=== PATIENT | female | born 1935 | race Caucasian/White ===

== ENCOUNTER 2020-09-05 11:19 | Inpatient (IN) | payer OTHER ==
[2020-09-05] MEDS ORDERED: MORPHINE SULFATE 2 MG/ML VIAL ONE ×2 (12:33→16:57)
[2020-09-05] MEDS ORDERED: ACETAMINOPHEN INJECTION 100 ML IVPB ONE (12:33)
[2020-09-05] MEDS ORDERED: ACETAMINOPHEN 1000 MG/100 ML VIAL (NON FORMULARY) IVPB ONE (12:36)
[2020-09-05] MEDS ORDERED: morphine CARPU-JECT 2 MG/1 ML DISP.SYRIN IVPUSH ONE (12:36)
[2020-09-05 13:45] LABS: BASO % 0.5 % (0-2.0); EOS % 2.6 % (0-4.5); HEMATOCRIT 32.7 % (32.4-45.2); LYMPH % 15.5 % (8-40); MCH 30.6 pg (25.7-33.7); MCHC 33.8 g/dl (32.0-36.0); MEAN CELL VOLUME 90.5 fl (80-96); MEAN PLT VOLUME 7.4 fl (7.5-11.1); MONO % 7.4 % (3.8-10.2); PLATELET COUNT 218 K/MM3 (134-434); RBC 3.61 M/mm3 (3.60-5.2); RDW 14.1 % (11.6-15.6); WHITE BLOOD COUNT 9.2 K/mm3 (4.0-10.0)
[2020-09-05 13:49] LABS: INR 1.03 (0.83-1.09); PROTHROMBIN TIME (PATIENT) 12.4 SEC (9.7-13.0)
[2020-09-05 13:54] LABS: CHLORIDE 104 mmol/L (98-107); POTASSIUM 4.7 mmol/L (3.5-5.1); SODIUM 136 mmol/L (136-145)
[2020-09-05 13:56] LABS: ALBUMIN 3.4 g/dl (3.4-5.0); ANION GAP 6 MMOL/L (8-16); BLOOD UREA NITROGEN 13.9 mg/dL (7-18); CALCIUM 9.3 mg/dL (8.5-10.1); CO2 26 mmol/L (21-32)
[2020-09-05 13:57] LABS: GLUCOSE,RANDOM 128 mg/dL (74-106)
[2020-09-05 13:59] LABS: CREATININE 1.2 mg/dL (0.55-1.3); SGOT/AST 19 U/L (15-37); SGPT/ALT 17 U/L (13-61)
[2020-09-05 14:01] LABS: BILIRUBIN,TOTAL 0.3 mg/dL (0.2-1); TOT PROT 6.8 g/dl (6.4-8.2)
[2020-09-05 14:02] LABS: ALK PHOS 84 U/L (45-117)
[2020-09-05] MEDS: MORPHINE SULFATE 2 MG/ML VIAL IVPUSH PRN ×2 (17:08→23:51)
[2020-09-05] MEDS ORDERED: ATENOLOL 25 MG TABLET (FP) PO SCH (22:00)
[2020-09-05] MEDS: HEPARIN NA (PORCINE) 5,000 UNITS/ML 1ML VIAL SQ SCH (23:47)
[2020-09-05] MEDS: ATENOLOL 25 MG TABLET (FP) PO SCH (23:47)
[2020-09-05] MEDS: ENALAPRIL MALEATE 10 MG TABLET PO SCH (23:47)
[2020-09-06 02:47] VITALS: BMI 23.2
[2020-09-06] MEDS: MORPHINE SULFATE 2 MG/ML VIAL IVPUSH PRN (05:50)
[2020-09-06] MEDS ORDERED: D5-1/2NS+20 MEQ KCL - 20 MEQ/1,000 ML INFUS.BAG IV SCH (08:15)
[2020-09-06] MEDS: ENALAPRIL MALEATE 10 MG TABLET PO SCH ×2 (09:24→21:24)
[2020-09-06] MEDS: ATENOLOL 25 MG TABLET (FP) PO SCH (09:24)
[2020-09-06] MEDS ORDERED: FLU VACCINE (FLULAVAL) PF 60 MCG/0.5 ML SYRINGE 2020-2021 IM ONE (09:30)
[2020-09-06] MEDS: HEPARIN NA (PORCINE) 5,000 UNITS/ML 1ML VIAL SQ SCH (09:31)
[2020-09-06 09:33] LABS: BASO % 0.3 % (0-2.0); EOS % 0.1 % (0-4.5); HEMATOCRIT 28.1 % (32.4-45.2); HEMOGLOBIN 9.7 GM/dL (10.7-15.3); LYMPH % 11.3 % (8-40); MCH 30.7 pg (25.7-33.7); MCHC 34.4 g/dl (32.0-36.0); MEAN CELL VOLUME 89.2 fl (80-96); MEAN PLT VOLUME 7.3 fl (7.5-11.1); NEUT % 78.3 % (42.8-82.8); PLATELET COUNT 171 K/MM3 (134-434); RBC 3.16 M/mm3 (3.60-5.2); WHITE BLOOD COUNT 10.4 K/mm3 (4.0-10.0)
[2020-09-06 09:50] LABS: POTASSIUM 4.5 mmol/L (3.5-5.1)
[2020-09-06] MEDS ORDERED: PANTOPRAZOLE 40 MG TABLET PO SCH (10:00)
[2020-09-06 10:34] LABS: ALBUMIN 3.1 g/dl (3.4-5.0); CALCIUM 8.6 mg/dL (8.5-10.1)
[2020-09-06 10:35] LABS: BLOOD UREA NITROGEN 18.4 mg/dL (7-18)
[2020-09-06 10:39] LABS: TOT PROT 6.1 g/dl (6.4-8.2)
[2020-09-06 10:44] LABS: BILIRUBIN,TOTAL 0.4 mg/dL (0.2-1)
[2020-09-06] MEDS ORDERED: INSULIN SLIDING SCALE (NOVOLOG) 1 VIAL SQ SCH (11:00)
[2020-09-06] MEDS ORDERED: oxyCODONE HCL 5 MG TABLET PO PRN (11:07)
[2020-09-06] MEDS ORDERED: ONDANSETRON 4 MG/2 ML VIAL IVPUSH PRN ×2 (11:07→12:55)
[2020-09-06] MEDS ORDERED: LACTATED RINGERS SOLUTION 1,000 ML IV SCH (11:15)
[2020-09-06] MEDS ORDERED: PROPOFOL 20 ML ONE (11:34)
[2020-09-06] MEDS ORDERED: ceFAZolin 2 GRAM PREMIX BAG IVPB ONE (11:45)
[2020-09-06] MEDS ORDERED: EPHEDRINE SULFATE/0.9% NACL/PF 50 MG/10 ML SYRINGE NR ONE (11:59)
[2020-09-06] MEDS ORDERED: PHENYLEPHRINE HCL 10 MG/1 ML SINGLE DOSE VIAL ONE (12:10)
[2020-09-06] MEDS ORDERED: NEOSTIGMINE METHYLSULFATE 0.5 MG/ML - 10 ML MDV ONE (12:11)
[2020-09-06] MEDS ORDERED: MORPHINE SULFATE 2 MG/ML VIAL IVPUSH PRN (12:55)
[2020-09-06] MEDS: D5-1/2NS+20 MEQ KCL - 20 MEQ/1,000 ML INFUS.BAG IV SCH (15:16)
[2020-09-06] MEDS: oxyCODONE HCL 5 MG TABLET PO PRN ×2 (16:28→21:26)
[2020-09-06] MEDS: INSULIN SLIDING SCALE (NOVOLOG) 1 VIAL SQ SCH ×2 (16:37→21:24)
[2020-09-06] MEDS ORDERED: ceFAZolin SODIUM 1 GM VIAL ONE (19:59)
[2020-09-06] MEDS ORDERED: CEFAZOLIN 1 GM/D5W 1 GM/50 ML BAG IVPB SCH (20:00)
[2020-09-06] MEDS ORDERED: DEXTROSE 5%-WATER - 50 ML IVPB ONE (20:00)
[2020-09-06] MEDS: CEFAZOLIN 1 GM in DEXTROSE 5%-WATER - 50 ML IVPB SCH (20:13)
[2020-09-06] MEDS: ATENOLOL 50 MG TABLET (FP) PO SCH (21:24)
[2020-09-07] MEDS ORDERED: ceFAZolin SODIUM 1 GM VIAL ONE (03:10)
[2020-09-07] MEDS ORDERED: DEXTROSE 5%-WATER - 50 ML IVPB ONE (03:11)
[2020-09-07] MEDS: CEFAZOLIN 1 GM in DEXTROSE 5%-WATER - 50 ML IVPB SCH (03:13)
[2020-09-07] MEDS: oxyCODONE HCL 5 MG TABLET PO PRN ×3 (03:14→21:53)
[2020-09-07] MEDS: INSULIN SLIDING SCALE (NOVOLOG) 1 VIAL SQ SCH ×4 (06:49→21:52)
[2020-09-07 08:38] LABS: BASO % 0.3 % (0-2.0); EOS % 0.1 % (0-4.5); HEMATOCRIT 25.2 % (32.4-45.2); HEMOGLOBIN 8.7 GM/dL (10.7-15.3); LYMPH % 7.5 % (8-40); MCH 30.7 pg (25.7-33.7); MCHC 34.7 g/dl (32.0-36.0); MEAN CELL VOLUME 88.7 fl (80-96); MEAN PLT VOLUME 7.3 fl (7.5-11.1); NEUT % 81.1 % (42.8-82.8); PLATELET COUNT 163 K/MM3 (134-434); RBC 2.84 M/mm3 (3.60-5.2); RDW 13.8 % (11.6-15.6); WHITE BLOOD COUNT 9.9 K/mm3 (4.0-10.0)
[2020-09-07 09:01] LABS: POTASSIUM 3.9 mmol/L (3.5-5.1)
[2020-09-07 09:11] LABS: ALBUMIN 2.7 g/dl (3.4-5.0)
[2020-09-07 09:12] LABS: BLOOD UREA NITROGEN 12.9 mg/dL (7-18)
[2020-09-07] MEDS: ATENOLOL 50 MG TABLET (FP) PO SCH ×2 (09:12→21:54)
[2020-09-07] MEDS: PANTOPRAZOLE 40 MG TABLET PO SCH (09:12)
[2020-09-07] MEDS: ENALAPRIL MALEATE 10 MG TABLET PO SCH ×2 (09:12→21:53)
[2020-09-07] MEDS: ENOXAPARIN NA (PORCINE) 40 MG/0.4 ML DISP.SYRIN SQ SCH (09:12)
[2020-09-07 09:16] LABS: BILIRUBIN,TOTAL 0.4 mg/dL (0.2-1)
[2020-09-07 09:21] LABS: CREATININE 1.1 mg/dL (0.55-1.3); TOT PROT 5.7 g/dl (6.4-8.2)
[2020-09-07] MEDS ORDERED: ENOXAPARIN NA (PORCINE) 40 MG/0.4 ML DISP.SYRIN SQ SCH (10:00)
[2020-09-07] MEDS: D5-1/2NS+20 MEQ KCL - 20 MEQ/1,000 ML INFUS.BAG IV SCH ×3 (17:12→21:56)
[2020-09-07] MEDS ORDERED: INSULIN (NOVOLOG) ASPART 100 UNITS/ML 10ML VIAL ONE (21:10)
[2020-09-08] MEDS: INSULIN SLIDING SCALE (NOVOLOG) 1 VIAL SQ SCH ×4 (06:25→22:09)
[2020-09-08 08:25] LABS: HEMATOCRIT 22.8 % (32.4-45.2); HEMOGLOBIN 7.9 GM/dL (10.7-15.3); MCH 30.7 pg (25.7-33.7); MCHC 34.6 g/dl (32.0-36.0); MEAN CELL VOLUME 88.8 fl (80-96); MEAN PLT VOLUME 7.2 fl (7.5-11.1); PLATELET COUNT 140 K/MM3 (134-434); RBC 2.57 M/mm3 (3.60-5.2); RDW 13.9 % (11.6-15.6); WHITE BLOOD COUNT 7.2 K/mm3 (4.0-10.0)
[2020-09-08] MEDS: ATENOLOL 50 MG TABLET (FP) PO SCH ×2 (09:41→22:09)
[2020-09-08] MEDS: oxyCODONE HCL 5 MG TABLET PO PRN ×2 (09:41→22:09)
[2020-09-08] MEDS: PANTOPRAZOLE 40 MG TABLET PO SCH (09:43)
[2020-09-08] MEDS: ENOXAPARIN NA (PORCINE) 40 MG/0.4 ML DISP.SYRIN SQ SCH (09:43)
[2020-09-08] MEDS: ENALAPRIL MALEATE 10 MG TABLET PO SCH ×2 (09:43→22:09)
[2020-09-08] MEDS: D5-1/2NS+20 MEQ KCL - 20 MEQ/1,000 ML INFUS.BAG IV SCH (12:09)
[2020-09-09] MEDS: INSULIN SLIDING SCALE (NOVOLOG) 1 VIAL SQ SCH ×4 (06:16→22:48)
[2020-09-09] MEDS: oxyCODONE HCL 5 MG TABLET PO PRN ×2 (09:37→13:43)
[2020-09-09] MEDS: ENOXAPARIN NA (PORCINE) 40 MG/0.4 ML DISP.SYRIN SQ SCH (09:37)
[2020-09-09] MEDS: ATENOLOL 50 MG TABLET (FP) PO SCH ×2 (09:37→22:48)
[2020-09-09] MEDS: ENALAPRIL MALEATE 10 MG TABLET PO SCH ×2 (09:38→22:48)
[2020-09-09] MEDS: PANTOPRAZOLE 40 MG TABLET PO SCH (09:38)
[2020-09-09] MEDS: DOCUSATE SODIUM 100 MG CAPSULE (FP) PO PRN (09:38)
[2020-09-09] MEDS ORDERED: IRON SUCROSE INJECTION 300 MG in SODIUM CHLORIDE 235 ML IVPB ONE (10:00)
[2020-09-09 12:04] LABS: HEMATOCRIT 29.5 % (32.4-45.2); MCH 30.1 pg (25.7-33.7); MEAN CELL VOLUME 88.4 fl (80-96); MEAN PLT VOLUME 7.5 fl (7.5-11.1); PLATELET COUNT 155 K/MM3 (134-434); RBC 3.34 M/mm3 (3.60-5.2); RDW 14.5 % (11.6-15.6); WHITE BLOOD COUNT 8.4 K/mm3 (4.0-10.0)
[2020-09-09 12:20] LABS: POTASSIUM 4.3 mmol/L (3.5-5.1)
[2020-09-09 12:21] LABS: CALCIUM 7.9 mg/dL (8.5-10.1)
[2020-09-09 12:22] LABS: BLOOD UREA NITROGEN 14.6 mg/dL (7-18)
[2020-09-09 12:26] LABS: IRON SERUM 62 ug/dL (50-175); TOTAL IRON BINDING CAPACITY 143 ug/dL (250-450)
[2020-09-10] MEDS: oxyCODONE HCL 5 MG TABLET PO PRN ×3 (01:44→21:48)
[2020-09-10] MEDS: INSULIN SLIDING SCALE (NOVOLOG) 1 VIAL SQ SCH ×4 (06:47→21:49)
[2020-09-10] MEDS: ATENOLOL 50 MG TABLET (FP) PO SCH ×2 (09:34→21:48)
[2020-09-10] MEDS: DOCUSATE SODIUM 100 MG CAPSULE (FP) PO PRN (09:35)
[2020-09-10] MEDS: PANTOPRAZOLE 40 MG TABLET PO SCH (09:35)
[2020-09-10] MEDS: ENALAPRIL MALEATE 10 MG TABLET PO SCH ×2 (09:35→21:48)
[2020-09-10] MEDS: ENOXAPARIN NA (PORCINE) 40 MG/0.4 ML DISP.SYRIN SQ SCH (09:36)
[2020-09-10] MEDS ORDERED: INSULIN (NOVOLOG) ASPART 100 UNITS/ML 10ML VIAL ONE (10:48)
[2020-09-11] MEDS: INSULIN SLIDING SCALE (NOVOLOG) 1 VIAL SQ SCH ×3 (06:08→17:50)
[2020-09-11 09:04] LABS: HEMATOCRIT 28.1 % (32.4-45.2); HEMOGLOBIN 9.8 GM/dL (10.7-15.3); MCH 30.4 pg (25.7-33.7); MCHC 34.7 g/dl (32.0-36.0); MEAN CELL VOLUME 87.5 fl (80-96); PLATELET COUNT 220 K/MM3 (134-434); RBC 3.21 M/mm3 (3.60-5.2); RDW 15.2 % (11.6-15.6); WHITE BLOOD COUNT 10.9 K/mm3 (4.0-10.0)
[2020-09-11] MEDS: ENOXAPARIN NA (PORCINE) 40 MG/0.4 ML DISP.SYRIN SQ SCH (09:19)
[2020-09-11 09:20] LABS: POTASSIUM 4.2 mmol/L (3.5-5.1)
[2020-09-11] MEDS: PANTOPRAZOLE 40 MG TABLET PO SCH (09:20)
[2020-09-11] MEDS: ATENOLOL 50 MG TABLET (FP) PO SCH (09:20)
[2020-09-11] MEDS: oxyCODONE HCL 5 MG TABLET PO PRN ×2 (09:20→19:13)
[2020-09-11 09:37] LABS: BLOOD UREA NITROGEN 16.6 mg/dL (7-18); CALCIUM 8.1 mg/dL (8.5-10.1)
[2020-09-11 09:40] LABS: CREATININE 0.9 mg/dL (0.55-1.3)
[2020-09-11] MEDS ORDERED: ENALAPRIL MALEATE 10 MG TABLET PO SCH (12:00)
[2020-09-11 14:17] VITALS: BP 127/64; PULSE 90; TEMP 98.5
[2020-09-11] MEDS: ENALAPRIL MALEATE 10 MG TABLET PO SCH (17:52)
== END 2020-09-11 20:48 | DRG 481 ==
LOC: JER 11:19 → JERBED 14:36 → J6S 22:22
PROVIDERS: ADMIT Family Medicine; ATTEND Family Medicine
PROC: 0QS704Z Reposition Left Upper Femur with Internal Fixation Device, Open Approach (ICD-10-PCS; principal; 2020-09-06 11:45)
PROC: 30233N1 Transfusion of Nonautologous Red Blood Cells into Peripheral Vein, Percutaneous Approach (ICD-10-PCS; 2020-09-09)
DX: S72.145A Nondisplaced intertrochanteric fracture of left femur, initial encounter for closed fracture (principal); J98.11 Atelectasis; D62 Acute posthemorrhagic anemia; E11.9 Type 2 diabetes mellitus without complications; E78.5 Hyperlipidemia, unspecified; E53.8 Deficiency of other specified B group vitamins; I10 Essential (primary) hypertension; K29.70 Gastritis, unspecified, without bleeding; W00.0XXA Fall on same level due to ice and snow, initial encounter; Y92.89 Other specified places as the place of occurrence of the external cause
CPT/HCPCS: 36415; 36430; 36511; 71045-TC-FY; 73523-TC-FY; 73562-TC-LT-FY; 76000-TC-FY; 80048; 80053; 82550; 82962; 83540; 83550; 84484; 85025; 85027; 85610; 86850; 86900; 86901; 86922; 93005; 93010; 94010; 94760; 97116-GP; 97162-GP; 99285-25; C9803; G0008; J0131; J1644; J1756; P9038; P9058; Q2036; U0003

== ENCOUNTER 2021-06-06 22:54 | Emergency (ER) | payer OTHER ==
[2021-06-06] MEDS ORDERED: DEXTROSE 50%-WATER - 25 GM/50 ML VIAL IVPUSH ONE (23:03)
[2021-06-06] MEDS ORDERED: DEXTROSE 50%-WATER 25 GM/50 ML DISP.SYRIN ONE (23:03)
[2021-06-06 23:04] VITALS: TEMP 96.5; BMI 21.9
[2021-06-06] MEDS ORDERED: ACETAMINOPHEN 1000 MG/100 ML VIAL IVPB ONE (23:39)
[2021-06-06 23:41] LABS: BASO % 0.3 % (0-2.0); EOS % 0.6 % (0-4.5); HEMATOCRIT 29.9 % (32.4-45.2); HEMOGLOBIN 9.4 GM/dL (10.7-15.3); LYMPH % 16.8 % (8-40); MCH 30.5 pg (25.7-33.7); MCHC 31.4 g/dl (32.0-36.0); MEAN CELL VOLUME 97.4 fl (80-96); MEAN PLT VOLUME 7.7 fl (7.5-11.1); MONO % 4.4 % (3.8-10.2); NEUT % 77.9 % (42.8-82.8); PLATELET COUNT 225 10^3/uL (134-434); RBC 3.07 M/mm3 (3.60-5.2); RDW 14.7 % (11.6-15.6); WHITE BLOOD COUNT 17.8 K/mm3 (4.0-10.0)
[2021-06-06] MEDS ORDERED: ACETAMINOPHEN INJECTION 100 ML IVPB ONE (23:45)
[2021-06-06 23:46] LABS: INR 1.21 (0.83-1.09); PROTHROMBIN TIME (PATIENT) 14.2 SEC (9.7-13.0)
[2021-06-06 23:49] LABS: ACTIVATED PTT 32.9 SECONDS (25.2-36.5)
[2021-06-06 23:51] LABS: VENOUS PH < 6.717 (7.310-7.410)
[2021-06-07 00:09] LABS: LACTIC ACID 10.4 mmol/L (0.4-2.0)
[2021-06-07] MEDS ORDERED: LACTATED RINGERS SOLUTION 1000 ML INFUS.BAG IV ONE ×2 (00:12)
[2021-06-07] MEDS ORDERED: PIPERACILLIN/TAZOB 4.5 GM 4.5 GM in DEXTROSE 5%-WATER 100 ML IVPB ONE (00:13)
[2021-06-07] MEDS ORDERED: VANCOMYCIN 1 GM in D5W (PRE-DOCKED) 1,000 MG/250 ML IVPB ONE (00:13)
[2021-06-07 00:17] LABS: ALBUMIN 2.6 g/dl (3.4-5.0); ALK PHOS 73 U/L (45-117); ANION GAP 26 MMOL/L (8-16); BILIRUBIN,TOTAL 0.2 mg/dL (0.2-1); BLOOD UREA NITROGEN 78.8 mg/dL (7-18); CALCIUM 8.2 mg/dL (8.5-10.1); CHLORIDE 100 mmol/L (98-107); CO2 5 mmol/L (21-32); CREATININE 7.8 mg/dL (0.55-1.3); GLUCOSE,RANDOM 325 mg/dL (74-106); N-TERMINAL BNP 6107.6 pg/ml (5-450); SGOT/AST 19 U/L (15-37); SGPT/ALT 16 U/L (13-61); SODIUM 131 mmol/L (136-145); TOT PROT 5.6 g/dl (6.4-8.2)
[2021-06-07] MEDS ORDERED: SODIUM BICARBONATE 8.4% 50 MEQ/50 ML DISP.SYRIN IVPUSH ONE ×3 (00:21→00:24)
[2021-06-07] MEDS ORDERED: INSULIN REGULAR HUMAN 100 UNITS/ML *VIAL IVPUSH ONE (00:25)
[2021-06-07] MEDS ORDERED: CALCIUM GLUCONATE 10% - 1,000 MG/10 ML VIAL IVPUSH ONE (00:25)
[2021-06-07] MEDS ORDERED: DEXTROSE 50%-WATER - 25 GM/50 ML VIAL IVPUSH ONE (00:25)
[2021-06-07] MEDS ORDERED: SODIUM BICARBONATE 8.4% - 50 ML ONE ×2 (00:27→00:52)
[2021-06-07] MEDS ORDERED: CALCIUM GLUCONATE 10% - 1,000 MG/10 ML VIAL ONE ×2 (00:28→01:07)
[2021-06-07] MEDS ORDERED: SODIUM BICARBONATE 8.4% - 150 MEQ in DEXTROSE 5%-WATER - 950 ML IVPB SCH (00:30)
[2021-06-07] MEDS ORDERED: VANCOMYCIN 1 GRAM (PRE-DOCKED) 1,000 MG/250 ML BAG IVPB ONE (00:35)
[2021-06-07] MEDS ORDERED: PIPERACILLIN/TAZOB 4.5 GM 4.5 GM/100 ML BAG IVPB ONE (00:35)
[2021-06-07 00:57] LABS: ARTERIAL BLD GAS O2 SATURATION 99.3 % (95-98); ARTERIAL BLOOD GAS BASE EXCESS 1.7 mmol/L (-2-2); ARTERIAL BLOOD GAS PO2 152.8 mmHg (80-100); ARTERIAL BLOOD GAS pH 7.574 (7.350-7.450)
[2021-06-07] MEDS ORDERED: SODIUM BICARBONATE 4.2% 5 MEQ/10 ML DISP.SYRIN IVPUSH ONE (01:07)
[2021-06-07 01:15] LABS: ANISOCYTOSIS 2+; MACROCYTOSIS 0; PLATELET ESTIMATE NORMAL; ROULEAU 1+
[2021-06-07 01:25] LABS: MAGNESIUM 1.6 mg/dL (1.8-2.4)
[2021-06-07] MEDS ORDERED: ROCURONIUM BROMIDE 50 MG/5 ML VIAL IV ONE (01:29)
[2021-06-07] MEDS ORDERED: ETOMIDATE 40 MG/20 ML VIAL IVPUSH ONE (01:29)
[2021-06-07] MEDS ORDERED: MORPHINE SULFATE/0.9% NACL/PF 100 MG/100 ML BAG ONE (01:58)
[2021-06-07] MEDS ORDERED: MORPHINE SULFATE/0.9% NACL/PF 100 MG/100 ML BAG IVPB SCH (02:00)
[2021-06-07 02:29] LABS: ARTERIAL BLD GAS O2 SATURATION 38.1 % (95-98); ARTERIAL BLOOD GAS BASE EXCESS -18.7 mmol/L (-2-2)
[2021-06-07 02:38] LABS: ALLENS TEST POSITIVE
[2021-06-07 02:39] LABS: VENT MODE A/C
[2021-06-07 02:40] LABS: ARTERIAL BLOOD GAS PO2 31.3 mmHg (80-100); ARTERIAL BLOOD GAS pH 7.039 (7.350-7.450)
[2021-06-07 03:44] VITALS: BP 124/67; PULSE 85
[2021-06-07] MEDS ORDERED: HEPARIN NA (PORCINE) 5,000 UNITS/ML 1ML VIAL SQ SCH (06:00)
[2021-06-07] MEDS ORDERED: INSULIN SLIDING SCALE (NOVOLOG) 1 VIAL SQ SCH (07:00)
[2021-06-07] MEDS ORDERED: MUPIROCIN 2% TOPICAL OINTMENT FOR DECOLONIZATION NS SCH (10:00)
[2021-06-07] MEDS ORDERED: CHLORHEXIDINE GLUCONATE 4% CLEANSER FOR DECOLONIZATION TP SCH (22:00)
== END 2021-06-07 02:45 | disposition expired ==
LOC: JER 22:54
PROC: 3E0333Z Introduction of Anti-inflammatory into Peripheral Vein, Percutaneous Approach (ICD-10-PCS; principal; 2021-06-06)
PROC: 3E033GC Introduction of Other Therapeutic Substance into Peripheral Vein, Percutaneous Approach (ICD-10-PCS; 2021-06-06)
PROC: 3E033GC Introduction of Other Therapeutic Substance into Peripheral Vein, Percutaneous Approach (ICD-10-PCS; 2021-06-06)
PROC: 3E033GC Introduction of Other Therapeutic Substance into Peripheral Vein, Percutaneous Approach (ICD-10-PCS; 2021-06-06)
PROC: 3E033NZ Introduction of Analgesics, Hypnotics, Sedatives into Peripheral Vein, Percutaneous Approach (ICD-10-PCS; 2021-06-06)
PROC: 3E03329 Introduction of Other Anti-infective into Peripheral Vein, Percutaneous Approach (ICD-10-PCS; 2021-06-06)
PROC: 3E03329 Introduction of Other Anti-infective into Peripheral Vein, Percutaneous Approach (ICD-10-PCS; 2021-06-06)
PROC: 3E033GC Introduction of Other Therapeutic Substance into Peripheral Vein, Percutaneous Approach (ICD-10-PCS; 2021-06-06)
DX: I46.9 Cardiac arrest, cause unspecified (principal); N17.9 Acute kidney failure, unspecified; E87.5 Hyperkalemia; E87.2 Acidosis
CPT/HCPCS: 36415; 36600; 70450-TC; 71045-TC-FY; 80053; 82550; 82803; 82962; 83605; 83690; 83735; 83880; 84484; 85025; 85610; 85730; 86850; 86900; 86901; 87040; 93005; 93010; 99291; 99292; C9803; J0131; U0003; U0005